=== PATIENT | female | born 1955 | race Caucasian/White ===

== ENCOUNTER 2022-11-15 11:22 | Emergency (ER) | payer OTHER ==
[~2022-11-15] VITALS: Ht 165.1 cm; Wt 98.9 kg
[2022-11-15 15:13] LABS: BASOPHILS ABSOLUTE AUTO 0.08 K/mm3 (0.00-0.23); BASOPHILS PERCENT AUTO 1 % (0-2); EOSINOPHILS ABSOLUTE AUTO 0.07 K/mm3 (0.00-0.68); EOSINOPHILS PERCENT AUTO 1 % (0-6); Hematocrit 42.8 % (33.0-51.0); Hemoglobin 13.8 g/dL (11.5-16.0); IMMATURE GRAN ABSOLUTE AUTO 0.05 K/mm3 (0.00-0.10); IMMATURE GRAN PERCENT AUTO 1 % (0-1); LYMPHOCYTES ABSOLUTE AUTO 1.33 K/mm3 (0.84-5.20); LYMPHOCYTES PERCENT AUTO 12 % (21-46); MONOCYTES PERCENT AUTO 9 % (4-13); Mean Corpuscular HGB 30.1 pg (26.0-34.0); Mean Corpuscular HGB Conc 32.2 g/dL (31.5-36.5); Mean Corpuscular Volume 93 fL (80-100); Mean Platelet Volume 10.4 fL (9.1-12.4); NEUTROPHILS ABSOLUTE AUTO 8.55 K/mm3 (1.96-9.15); NEUTROPHILS PERCENT AUTO 77 % (41-73); Platelet Count 260 K/mm3 (150-400); RDW Coefficient Variation 14.4 % (11.7-14.2); RDW Standard Deviation 49.4 fL (35.1-46.3); Red Blood Cell Count 4.59 M/mm3 (3.80-5.20); White Blood Cell Count 11.08 K/mm3 (4.00-11.30)
[2022-11-15 15:24] LABS: Source, Urine Clean Catch
[2022-11-15 15:27] LABS: Appearance, Urine Hazy (Clear); Bilirubin, Urine Neg (Neg); Blood, Urine 5+ (Neg); Color, Urine Yellow (P-Yellow); Glucose Qualitative, Urine Neg (Neg); Ketones, Urine 3+ (Neg); Leukocyte Esterase, Urine 3+ (Neg); Nitrite, Urine Pos (Neg); Protein, Urine 3+ (Neg); Urobilinogen, Urine NORM (Normal); pH, Urine 6.5 (5.0-8.0)
[2022-11-15 15:30] LABS: Albumin, Blood 3.3 g/dL (3.4-5.0); Albumin/Globulin Ratio 0.7 (0.8-1.8); Bilirubin, Total 0.4 mg/dL (0.1-1.0); Bun/Creatinine Ratio 25.2 (12.0-20.0); Calcium, Blood 10.4 mg/dL (8.5-10.1); Creatinine, Blood 0.52 mg/dL (0.40-1.00); Globulin, Blood 4.8 g/dL (2.2-4.0); Potassium, Blood 4.1 mmol/L (3.5-5.5); Total Protein, Blood 8.1 g/dL (6.4-8.2)
[2022-11-15 15:39] LABS: Bacteria Many /hpf; Red Blood Cells, Urine 50-100 /hpf (0-2); Renal Epithelial Rare /hpf (0-Rare); Squamous Epithelial Cells Many /hpf (Few); Transitional Epithelial Cells Few /hpf (0-Rare); White Blood Cells, Urine 25-50 /hpf (0-5)
[2022-11-15 19:38] VITALS: BP 151/96
[2022-11-15] MEDS ORDERED: ONDA4ODT SL (20:01)
[2022-11-15] MEDS ORDERED: Percocet 5-3251 EACH PO (20:01)
[2022-11-15] MEDS ORDERED: CEFP200 PO (20:01)
== END 2022-11-15 20:12 | disposition home or self-care (01) ==
LOC: ER 11:22
PROVIDERS: Student in an Organized Health Care Education/Training Program
DX: N13.2 Hydronephrosis with renal and ureteral calculous obstruction (principal); R82.81 Pyuria
CPT/HCPCS: 74177; 80053; 81001; 83690; 85025; 87077; 87086; 87186; 96361; 96374-59; 99284-25; A9270; J1885; J2405; J7030; Q9967

== ENCOUNTER → 2023-02-08 | Outpatient (CLI) | payer OTHER ==
[~2023-02-08] MED LIST: CEFP200 PO; ONDA4ODT SL; Percocet 5-3251 EACH PO
== END ==
LOC: LAB 10:25 → LAB SHORT 10:25
DX: N39.0 Urinary tract infection, site not specified (principal)
CPT/HCPCS: 87077; 87086; 87147; 87186

== ENCOUNTER → 2023-04-26 | Outpatient (CLI) | payer OTHER | END | disposition home or self-care (01) | LOC: LAB 18:14 → LAB SHORT 18:14 | DX: R30.0 Dysuria (principal) | CPT/HCPCS: 87077; 87086; 87186 ==

== ENCOUNTER → 2023-08-25 | Outpatient (CLI) | payer OTHER ==
[~2023-08-25] MED LIST changes: +Apple Cider Vi300 MG PO; +BENADRYL25 MG PO; +BLACK COHOSH PO; +C COMPLEX1000 M1 PO; +CENTRUM SILVER1 EAC2 PO; +COLLAGEN PO; +CRANBERRY450 M1 PO; +D MANNOSE PO; +FLAXSEED OIL1000 M1 PO; +FOLI1 PO; +FURO20 PO; +GLUCOSAMINE-CH1 EA50 PO; +GREEN TEA500 MG PO; +IRON PO; +MAGNESIUM OXID500 MG PO; +MERIBIN5 MG PO; +POTA10T PO; +PROBIOTIC1 EA13 PO; +PUMPKIN SEED EXTRACT PO; +QUNOL MEGA COQ100 MG PO; +RAMI5 PO; +TART CHERRY PO; +TUMERIC/GINGER PO; +VITAMIN B122500 MC1 PO; +[UNRECOGNIZED DRUG - OTHER] PO; +[UNRECOGNIZED DRUG - OTHER] PO
[2023-08-25 14:54] LABS: Bacterial Vaginosis PCR Negative (NEGATIVE); Candida Group, PCR NOT DETECTED (NOT DETECT); Candida glabrata-krusei, PCR NOT DETECTED (NOT DETECT)
== END ==
LOC: LAB 12:29 → LAB SHORT 12:29
PROVIDERS: Student in an Organized Health Care Education/Training Program
DX: N39.0 Urinary tract infection, site not specified (principal)
CPT/HCPCS: 87077; 87086; 87147; 87186; 87481; 87661; 87801

== ENCOUNTER → 2023-10-07 | Outpatient (CLI) | payer OTHER ==
[2023-10-07 16:40] LABS: Creatinine Urine 73.3 mg/dL (27.00-270.00); Protein, Urine Quantitative 14.4 mg/dL (0.0-11.9)
[2023-10-07 18:28] LABS: Calcium, Urine 22.2 mg/dL (< 17.5); Calcium, Urine Calculation 377.4 mg/24hrs (42.0-353.0)
== END ==
LOC: LAB 12:51 → LAB SHORT 12:51
PROVIDERS: Internal Medicine Nephrology
DX: E55.9 Vitamin D deficiency, unspecified (principal); N25.81 Secondary hyperparathyroidism of renal origin; E76.9 Glucosaminoglycan metabolism disorder, unspecified; R76.9 Abnormal immunological finding in serum, unspecified; R94.5 Abnormal results of liver function studies; R94.6 Abnormal results of thyroid function studies; N18.2 Chronic kidney disease, stage 2 (mild); D63.1 Anemia in chronic kidney disease
CPT/HCPCS: 81050; 82043; 82340; 82570; 84156; 84300

== ENCOUNTER → 2023-10-11 | Outpatient (CLI) | payer OTHER | END | disposition home or self-care (01) | LOC: LAB SHORT 18:18 → LAB 18:18 | DX: R39.9 Unspecified symptoms and signs involving the genitourinary system (principal) | CPT/HCPCS: 87077; 87086; 87186 ==

== ENCOUNTER → 2024-04-23 | Outpatient (CLI) | payer OTHER ==
[~2024-04-23] MED LIST changes: +ASPI81CH PO
== END | disposition home or self-care (01) ==
LOC: LAB 15:45 → LAB SHORT 15:45
DX: N39.0 Urinary tract infection, site not specified (principal)
CPT/HCPCS: 87077; 87086; 87186

== ENCOUNTER → 2024-06-21 | Outpatient (CLI) | payer OTHER | LOC: LAB 16:10 → LAB SHORT 16:10 | DX: N39.0 Urinary tract infection, site not specified (principal) | CPT/HCPCS: 87077; 87086; 87186 ==

== ENCOUNTER → 2024-12-31 | Outpatient (CLI) | payer OTHER | LOC: LAB 18:52 → LAB SHORT 18:52 | DX: R30.0 Dysuria (principal) | CPT/HCPCS: 87077; 87086; 87186 ==